=== PATIENT | female | born 1985 | race Caucasian/White ===

== ENCOUNTER 2023-02-18 04:00 | Emergency (ER) | payer BC, OTHER ==
[2023-02-18 04:09] VITALS: RESP 20; TEMP 97.9; BMI 22.6
[2023-02-18] MEDS ORDERED: ONDANSETRON 4 MG/2 ML VIAL IVPUSH ONE (04:39)
[2023-02-18] MEDS ORDERED: SODIUM CHLORIDE 0.9% 500 ML INFUS.BAG IV ONE (04:39)
[2023-02-18] MEDS ORDERED: FAMOTIDINE 20 MG/50 ML IVPB 20 MG/50 ML MG IVPB ONE ×2 (04:57→05:07)
[2023-02-18] MEDS ORDERED: HALOPERIDOL LACTATE 5 MG/ML IM ONE ×2 (05:08→05:10)
[2023-02-18 05:41] LABS: POTASSIUM 3.7 mmol/L (3.5-5.1)
[2023-02-18 05:43] LABS: ALBUMIN 3.9 g/dl (3.4-5.0); CALCIUM 8.9 mg/dL (8.5-10.1)
[2023-02-18 05:47] LABS: BLOOD UREA NITROGEN 19.2 mg/dL (7-18); CREATININE 0.7 mg/dL (0.55-1.3)
[2023-02-18 05:48] LABS: BILIRUBIN,TOTAL 0.3 mg/dL (0.2-1); TOT PROT 7.2 g/dl (6.4-8.2)
[2023-02-18 06:26] LABS: BASO % 0.3 % (0-2.0); EOS % 1.3 % (0-4.5); LYMPH % 45.5 % (8-40); MCH 32.6 pg (25.7-33.7); MCHC 34.3 g/dl (32.0-36.0); MEAN CELL VOLUME 95.1 fl (80-96); MEAN PLT VOLUME 8.5 fl (7.5-11.1); MONO % 11.5 % (3.8-10.2); NEUT % 41.4 % (42.8-82.8); PLATELET COUNT 354 10^3/uL (134-434); RDW 12.4 % (11.6-15.6); WHITE BLOOD COUNT 6.6 K/mm3 (4.0-10.0)
[2023-02-18 06:42] VITALS: BP 102/58; PULSE 98
== END 2023-02-18 07:01 | disposition home or self-care (01) ==
LOC: JER 04:00
PROC: 3E033GC Introduction of Other Therapeutic Substance into Peripheral Vein, Percutaneous Approach (ICD-10-PCS; principal; 2023-02-18)
PROC: 3E033GC Introduction of Other Therapeutic Substance into Peripheral Vein, Percutaneous Approach (ICD-10-PCS; 2023-02-18)
PROC: 3E033GC Introduction of Other Therapeutic Substance into Peripheral Vein, Percutaneous Approach (ICD-10-PCS; 2023-02-18)
PROC: 3E023GC Introduction of Other Therapeutic Substance into Muscle, Percutaneous Approach (ICD-10-PCS; 2023-02-18)
DX: R11.2 Nausea with vomiting, unspecified (principal); R19.7 Diarrhea, unspecified; R10.13 Epigastric pain; F12.90 Cannabis use, unspecified, uncomplicated; R45.7 State of emotional shock and stress, unspecified; R68.2 Dry mouth, unspecified; R00.0 Tachycardia, unspecified; R06.82 Tachypnea, not elsewhere classified
CPT/HCPCS: 36415; 80053; 83690; 83735; 84703; 85025; 93005; 93010; 99284-25